=== PATIENT | female | born 1930 | race Two or more races ===

== ENCOUNTER 2018-01-17 23:42 | Emergency (ER) | payer OTHER ==
[~2018-01-17] VITALS: Ht 167.6 cm; Wt 59.0 kg
[2018-01-18] MEDS ORDERED: LIDOCAINE W/ EPINEPHRINE 2% INJ 20ML VIAL IJ ONE (02:45)
[2018-01-18 03:06] VITALS: BP 131/67
[2018-01-18] MEDS ORDERED: cefTRIAXone SOD 1,000 MG VL IM ONE (03:15)
[2018-01-18] MEDS ORDERED: TETANUS-DIPTH-ACEL PERTUSSIS 0.5ML SYRG IM ONE (03:15)
== END 2018-01-18 04:22 | disposition home or self-care (01) ==
LOC: ER 23:42 → EDBD 23:42 → ER 01-18 04:22
DX: S01.81XA Laceration without foreign body of other part of head, initial encounter (principal); M19.90 Unspecified osteoarthritis, unspecified site; J45.909 Unspecified asthma, uncomplicated; I10 Essential (primary) hypertension; W01.198A Fall on same level from slipping, tripping and stumbling with subsequent striking against other object, initial encounter; Y93.89 Activity, other specified; Y92.89 Other specified places as the place of occurrence of the external cause; Y99.8 Other external cause status
CPT/HCPCS: 12013; 70450; 72125; 90471; 90715; 96372; 99284; J0696